=== PATIENT | female | born 1955 | race Caucasian/White ===

== ENCOUNTER → 2017-07-07 | Outpatient (CLI) | payer OTHER, MEDICARE ==
--- NOTE | 2017-07-07 12:33 | MR ---
EXAMINATION TYPE: MR hip LT wo con DATE OF EXAM: 07/07/2017 COMPARISON: NONE HISTORY: Pain in Left hip, OA of left hip Standard multiplanar, multisequence MRI departmental protocol Multiplanar, multisequence images of the left were acquired. FINDINGS: Lower lumbar spine demonstrates severe to facet arthropathy and degenerative disc disease. Suggestion of a spondylolisthesis which is not included on the axial or sagittal images of the left hip. Correl ate with x-ray for lumbar spine degenerative disc disease with possible spondylolisthesis. There is no free fluid within the pelvis. There is muscular atrophy noted of the gluteal muscles. There is no evidence of marrow edema, contusion or osteonecrosis. There is concentric narrowing of the left hip joint space without evidence of erosion. No sizable andie nt effusion. No abnormal signal within the visualized musculature. No diagnostic evidence of trochanteric bursitis . Acetabular labrum appears intact. IMPRESSION: 1. Osteoarthritis. 2. There appears to be significant degenerative disc disease involving the lower lumbar spine with fa cet arthropathy suggesting possible spondylolisthesis. Correlate with x-ray or MRI.
== END | disposition home or self-care (01) ==
LOC: RADMRIMAIN 09:57
PROVIDERS: ATTEND Orthopaedic Surgery
DX: M16.12 Unilateral primary osteoarthritis, left hip (principal)

== ENCOUNTER 2023-02-28 10:51 | Inpatient (IN) | payer MEDICARE ==
--- NOTE | 2023-02-28 11:09 | ED ---
General Adult HPI - General Stated complaint: Left leg injury Time Seen by Provider: 02/28/23 11:00 Source: patient, RN notes reviewed, old records reviewed - History of Present Illness Initial comments: This is a 67-year-old female presents emergency Department complaining of left femur pain. Patient states she was in the laundry walking and went to step up and kicked a step and felt her leg crack and then fell to the ground. Patient states she thinks it broke prior to hitting the ground. Patient denies hitting her head or neck. Patient denies any other extremity problem. Patient denies having any lightheadedness or dizziness prior to the fall. Patient denies any chest pain or difficulty breathing. - Related Data Allergies Allergy/AdvReac Type Severity Reaction Status Date / Time Penicillins Allergy Swelling Verified 02/28/23 11:15 Review of Systems ROS Statement: Those systems with pertinent positive or pertinent negative responses have been documented in the HPI. ROS Other: All systems not noted in ROS Statement are negative. General Exam - General Exam Comments Initial Comments: GENERAL: Patient is well-developed and well-nourished. Patient is nontoxic and well- hydrated and is in moderate distress. ENT: Neck is soft and supple. No significant lymphadenopathy is noted. Oropharynx is clear. Moist mucous membranes. Neck has full range of motion without eliciting any pain. EYES: The sclera were anicteric and conjunctiva were pink and moist. Extraocular movements were intact and pupils were equal round and reactive to light. Eyelids were unremarkable. PULMONARY: Unlabored respirations. Good breath sounds bilaterally. No audible rales rhonchi or wheezing was noted. CARDIOVASCULAR: There is a regular rate and rhythm without any murmurs gallops or rubs. ABDOMEN: Soft and nontender with normal bowel sounds. SKIN: Skin is clear with no lesions or rashes and otherwise unremarkable. NEUROLOGIC: Patient is alert and oriented x3. Cranial nerves II through XII are grossly intact. Motor and sensory are also intact. Normal speech, volume and content. Symmetrical smile. MUSCULOSKELETAL: Patient has significant tenderness and deformity of the mid femur on the left. All other extremities with full range of motion. LYMPHATICS: No significant lymphadenopathy is noted PSYCHIATRIC: Normal psychiatric evaluation. Course Vital Signs 02/28/23 02/28/23 02/28/23 11:01 12:00 13:00 Temperature 98.5 F Pulse Rate 80 78 75 Respiratory 18 16 16 Rate Blood Pressure 149/73 144/71 115/56 O2 Sat by Pulse 100 98 97 Oximetry 02/28/23 14:00 Temperature Pulse Rate 85 Respiratory 16 Rate Blood Pressure 132/80 O2 Sat by Pulse 96 Oximetry Medical Decision Making - Medical Decision Making EKG is interpreted by myself. EKG shows a sinus rhythm at 75 bpm TN interval 252 QRS of 93 QT interval 4:30 QTC is 441 per patient's EKG shows no ST segment elevation or depression. Was pt. sent in by a medical professional or institution (, PA, PROCUREMENT ACCOUNTANT, urgent care, hospital, or residential...) When possible be specific @ -No Did you speak to anyone other than the patient for history (EMS, parent, family, police, friend...)? What history was obtained from this source @ -No Did you review nursing and triage notes (agree or disagree)? Why? @ -I reviewed and agree with nursing and triage notes Were old charts reviewed (outside hosp., previous admission, EMS record, old EKG, old radiological studies, urgent care reports/EKG's, residential records)? Report findings @ -No old charts were reviewed Differential Diagnosis (chest pain, altered mental status, abdominal pain women, abdominal pain men, vaginal bleeding, weakness, fever, dyspnea, syncope, headache, dizziness, GI bleed, back pain, seizure, CVA, palpatations, mental health, musculoskeletal)? @ -Differential Musculoskeletal Muscular strain, contusion, ligament sprain, fracture, arthritis, septic a rthritis, bursitis, cellulitis, muscle spasm, nerve compression, DVT, arterial occlusion, herpes zoster, electrolyte abnormality, tumor.... This is not meant to be in all inclusive list EKG interpreted by me (3pts min.). @ -As above X-rays interpreted by me (1pt min.). @ -X-ray of the femur shows a displaced proximal femur fracture on the left. Chest x-ray shows no acute abnormality CT interpreted by me (1pt min.). @ -None done U/S interpreted by me (1pt. min.). @ -None done What testing was considered but not performed or refused? (CT, X-rays, U/S, labs)? Why? @ -None What meds were considered but not given or refused? Why? @ -None Did you discuss the management of the patient with other professionals (professionals i.e. DrRonny, PA, PROCUREMENT ACCOUNTANT, lab, RT, psych nurse, healthcare social worker, director of market analysis, teacher, executive officer special warfare team, upper caser)? Give summary @ -I spoke with Dr. Knight he was in agreement with admitting the patient Was smoking cessation discussed for >3mins.? @ -No Was critical care preformed (if so, how long)? @ -No Were there social determinants of health that impacted care today? How? (Homelessness, low income, unemployed, alcoholism, drug addiction, transportation, low edu. Level, literacy, decrease access to med. care, fpc, rehab)? @ -No Was there de-escalation of care discussed even if they declined (Discuss DNR or withdrawal of care, Hospice)? DNR status @ -No What co-morbidities impacted this encounter? (DM, HTN, Smoking, COPD, CAD, Cancer, CVA, ARF, Chemo, Hep., AIDS, mental health diagnosis, sleep apnea, morbid obesity)? @ -None Was patient admitted / discharged? Hospital course, mention meds given and route, prescriptions, significant lab abnormalities, going to OR and other pertinent info. @ -Patient will be admitted for femur fracture. Patient's traction was removed her Dr. Knight request. Patient was given multiple doses of pain medicine. I wrote admitting orders. I consulted Dr. Rm for medical clearance Undiagnosed new problem with uncertain prognosis? @ -No Drug Therapy requiring intensive monitoring for toxicity (Heparin, Nitro, Insulin, Cardizem)? @ -No Were any procedures done? @ -No Diagnosis/symptom? @ -Left femur fracture Acute, or Chronic, or Acute on Chronic? @ -Acute Uncomplicated (without systemic symptoms) or Complicated (systemic symptoms)? @ -complicated Side effects of treatment? @ -No Exacerbation, Progression, or Severe Exacerbation? @ -No Poses a threat to life or bodily function? How? (Chest pain, [place], [place], pneumonia, PE, COPD, DKA, ARF, appy, cholecystitis, CVA, Diverticulitis, Homicidal, Suicidal, threat to staff... and all critical care pts) @ -No - Lab Data Result diagrams: 02/28/23 11:44 02/28/23 11:44 Lab Results 02/28/23 02/28/23 02/28/23 Range/Units 11:44 11:44 11:44 WBC 11.6 H (3.8-10.6) k/uL RBC 4.85 (3.80-5.40) m/uL Hgb 14.5 (11.4-16.0) gm/dL Hct 42.7 (34.0-46.0) % MCV 88.0 (80.0-100.0) fL MCH 29.9 (25.0-35.0) pg MCHC 33.9 (31.0-37.0) g/dL RDW 13.0 (11.5-15.5) % Plt Count 309 (150-450) k/uL MPV 7.5 Neutrophils % 80 % Lymphocytes % 12 % Monocytes % 5 % Eosinophils % 1 % Basophils % 0 % Neutrophils # 9.3 H (1.3-7.7) k/uL Lymphocytes # 1.4 (1.0-4.8) k/uL Monocytes # 0.6 (0-1.0) k/uL Eosinophils # 0.1 (0-0.7) k/uL Basophils # 0.0 (0-0.2) k/uL PT 10.5 (10.0-12.5) sec INR 0.9 (<1.2) APTT 23.4 (22.0-30.0) sec Sodium 139 (137-145) mmol/L Potassium 3.8 (3.5-5.1) mmol/L Chloride 103 (98-107) mmol/L Carbon Dioxide 22 (22-30) mmol/L Anion Gap 14 mmol/L BUN 29 H (7-17) mg/dL Creatinine 1.11 H (0.52-1.04) mg/dL Est GFR (CKD-EPI)AfAm 60 (>60 ml/min/1.73 sqM) Est GFR (CKD-EPI)NonAf 52 (>60 ml/min/1.73 sqM) Glucose 164 H (74-99) mg/dL Calcium 9.8 (8.4-10.2) mg/dL Total Bilirubin 0.7 (0.2-1.3) mg/dL AST 30 (14-36) U/L ALT 28 (4-34) U/L Alkaline Phosphatase 60 (38-126) U/L Total Protein 7.5 (6.3-8.2) g/dL Albumin 4.5 (3.5-5.0) g/dL Disposition Clinical Impression: Femur fracture, left Disposition: ADMITTED IP TO THIS HOSP Referrals: Hector Mcclure MD [Primary Care Provider] - 1-2 days Time of Disposition: 14:34
[2023-02-28] MEDS ORDERED: HYDROmorphone 0.5 MG/0.5 ML SYRINGE IVP STA ×2 (11:31→13:54)
[2023-02-28 11:58] LABS: Basophils % (A) 0 %; Eosinophils # (A) 0.1 k/uL (0-0.7); Eosinophils % (A) 1 %; HCT 42.7 % (34.0-46.0); HGB 14.5 gm/dL (11.4-16.0); Lymphocytes # (A) 1.4 k/uL (1.0-4.8); Lymphocytes % (A) 12 %; MCH 29.9 pg (25.0-35.0); MCHC 33.9 g/dL (31.0-37.0); Mean Platelet Volume 7.5; Monocytes # (A) 0.6 k/uL (0-1.0); Monocytes % (A) 5 %; Neutrophils # (A) 9.3 k/uL (1.3-7.7); Neutrophils % (A) 80 %; Platelet Count 309 k/uL (150-450); RBC 4.85 m/uL (3.80-5.40); WBC 11.6 k/uL (3.8-10.6)
--- NOTE | 2023-02-28 12:21 | XR ---
EXAMINATION TYPE: XR femur LT DATE OF EXAM: 02/28/2023 12:03 PM CLINICAL INDICATION:Female, 67 years old with history of Trauma; [facility] COMPARISON: None TECHNIQUE: The left femur was examined in Frontal and lateral projections. FINDINGS/IMPRESSION: Acute left proximal femur diaphysis fracture with displacement and shortening. There is radial displa cement and shortening up to 3.0 cm.
--- NOTE | 2023-02-28 12:22 | XR ---
EXAMINATION TYPE: XR chest 1V DATE OF EXAM: 02/28/2023 12:03 PM CLINICAL INDICATION:Female, 67 years old with history of Pre-surgical; [facility] COMPARISON: None TECHNIQUE: XR chest 1V Frontal view of the chest. FINDINGS: Lungs/Pleura: Elevated right diaphragm. There is no evidence of pleural effusion, focal consolidation , or pneumothorax. Pulmonary vascularity: Pulmonary vascular congestion. Heart/mediastinum: Cardiomediastinal silhouette is enlarged and stable. Musculoskeletal: No acute osseous pathology. Bilateral shoulder arthroplasty changes appear intact. Other findings: None IMPRESSION: Low lung volumes with a generalized hazy appearance which could represent atelectasis versus pulmonar y edema correlate with serum BNP.
[2023-02-28 12:25] LABS: ALT 28 U/L (4-34); AST 30 U/L (14-36); African American GFR (CKD) 60 (>60 ml/min/1.73 sqM); Albumin 4.5 g/dL (3.5-5.0); Alkaline Phosphatase 60 U/L (38-126); Anion Gap 14 mmol/L; Blood Urea Nitrogen 29 mg/dL (7-17); Calcium 9.8 mg/dL (8.4-10.2); Carbon Dioxide 22 mmol/L (22-30); Chloride 103 mmol/L (98-107); Glucose 164 mg/dL (74-99); Non-African American GFR(CKD) 52 (>60 ml/min/1.73 sqM); Potassium 3.8 mmol/L (3.5-5.1); Sodium 139 mmol/L (137-145); Total Bilirubin 0.7 mg/dL (0.2-1.3); Total Protein 7.5 g/dL (6.3-8.2)
[2023-02-28 12:30] LABS: INR 0.9 (<1.2); Partial Thromboplastin Time 23.4 sec (22.0-30.0); Prothrombin Time 10.5 sec (10.0-12.5)
[2023-02-28] MEDS ORDERED: SODIUM CHLORIDE 0.9% 1,000 ML IV ONE (14:35)
--- NOTE | 2023-02-28 16:10 | P.CONS ---
History of Present Illness - Reason for Consult Consult date: 02/28/23 Medical management Requesting physician: Jamison Knight - Chief Complaint Left femur fracture - History of Present Illness This is a pleasant 67-year-old patient follows with Dr. Hector Mcclure. Chronic stable medical conditions include hyperlipidemia, essential hypertension, GERD, Frank arthritis. Patient somewhat limited in her exercise tolerance that is able to do a lot of mouth because of pain in her knees. She was started take a step, but hit the rung, and felt a snap in the left hip area. Patient is a confirmed fracture of the left femoral neck. at the bedside. Denies any prior cardiac history. No chest pain or shortness of breath. Review of systems: GEN.: None EYES: None HEENT: None NECK: None RESPIRATORY: None CARDIOVASCULAR: None GASTROINTESTINAL: None GENITOURINARY: None MUSCULOSKELETAL: As above LYMPHATICS: None HEMATOLOGICAL: None PSYCHIATRY: None NEUROLOGICAL: None Past medical history to include: Hypertension, hyperlipidemia, primary osteoarthritis, GERD, Social history: Homemaker. . No smoking or alcohol Physical examination: VITAL SIGNS: 98.5, 80, 18, 1:30/67, 98% room air GENERAL: BMI 37.1, declining but awake comfortable. EYES: Pupils equal. Conjunctiva normal. HEENT: External appearance of nose and ears normal, oral cavity grossly normal. NECK: JVD not raised; masses not palpable. HEART: First and second heart sounds are normal; no edema. LUNGS: Respiratory rate normal; clear to auscultation. ABDOMEN: Soft, nontender, liver spleen not palpable, no masses palpable. PSYCH: Alert and oriented x3; mood and affect normal. MUSCULOSKELETAL:No Clubbing/cyanosis;muscles-grossly intact. Limited range of motion of left hip. Evidence of OA in other joints NEUROLOGICAL: Cranial nerves grossly intact; no facial asymmetry, power and sensation grossly intact. LYMPHATICS: No lymph nodes palpable in the axilla and neck INVESTIGATIONS, reviewed in the clinical context: February 28: White count 11.6 hemoglobin 14.5 platelets 309 sodium 139 potassium 3.8 BUN 29 creatinine 1.11 EKG tracing personally reviewed by me-normal sinus rhythm. Chest x-ray film personally reviewed by me-elevated right diaphragm Assessment and plan: -Left femoral neck fracture Dictating scheduled for surgery by Dr. Jamison Knight -Hyperlipidemia Zocor -Essential hypertension Cozaar 25 mg a day -Primary osteoarthritis Pain medications as needed -Abnormal creatinine. Acute versus chronic. Note patient does take Voltaren. And hydrochlorothiazide. Check UA. IV fluids. Repeat labs in the morning. Patient denies any cardiac or respiratory symptoms. Denies any cardiac history. Low risk for any perioperative medical conditions. Medically stable to proceed for surgery. Thank you Dr. Knight Past Medical History Past Medical History: Hypertension Additional Past Medical History / Comment(s): breast cancer 2011 History of Any Multi-Drug Resistant Organisms: None Reported Past Surgical History: Cholecystectomy, Joint Replacement, Orthopedic Surgery, Tonsillectomy, Tubal Ligation Additional Past Surgical History / Comment(s): left knee replacement 2015, bilat shoulders, detached retina, lumpectomy 2011 Past Psychological History: No Psychological Hx Reported Smoking Status: Never smoker Past Alcohol Use History: Rare Past Drug Use History: None Reported Medications and Allergies Home Medications Medication Instructions Recorded Confirmed Type Acetaminophen/Diphenhydramine 2 tab PO HS 02/28/23 02/28/23 History [Tylenol PM 500-25mg] Alendronate Sodium [Fosamax] 70 mg PO MANDUJANO 02/28/23 02/28/23 History Calcium Citrate/Vitamin D3 1 tab PO DAILY 02/28/23 02/28/23 History [Citracal + D Maximum Caplet] Diclofenac Sodium [Voltaren] 50 mg PO BID 02/28/23 02/28/23 History Losartan [Cozaar] 25 mg PO DAILY 02/28/23 02/28/23 History Omeprazole [PriLOSEC] 20 mg PO DAILY 02/28/23 02/28/23 History Simvastatin [Zocor] 10 mg PO HS 02/28/23 02/28/23 History Triamcinolone 0.1% Cream [Kenalog 1 applic TOPICAL BID PRN 02/28/23 02/28/23 History 0.1% Cream] hydroCHLOROthiazide 12.5 mg PO DAILY 02/28/23 02/28/23 History Allergies Allergy/AdvReac Type Severity Reaction Status Date / Time Penicillins Allergy Swelling Verified 02/28/23 15:24 in mouth Physical Exam Vitals: Vital Signs Temp Pulse Resp BP Pulse Ox 02/28/23 15:32 84 18 130/67 98 02/28/23 14:00 85 16 132/80 96 02/28/23 13:00 75 16 115/56 97 02/28/23 12:00 78 16 144/71 98 02/28/23 11:01 98.5 F 80 18 149/73 100 Intake and Output 02/28/23 02/28/23 02/28/23 06:59 14:59 22:59 Other: Weight 86.183 kg Results CBC & Chem 7: 02/28/23 11:44 02/28/23 11:44 Labs: Abnormal Lab Results - Last 24 Hours (Table) 02/28/23 02/28/23 Range/Units 11:44 11:44 WBC 11.6 H (3.8-10.6) k/uL Neutrophils # 9.3 H (1.3-7.7) k/uL BUN 29 H (7-17) mg/dL Creatinine 1.11 H (0.52-1.04) mg/dL Glucose 164 H (74-99) mg/dL
[2023-02-28] MEDS: HYDROmorphone 0.5 MG/0.5 ML SYRINGE IVP PRN ×2 (16:16→20:14)
[2023-02-28] MEDS: ENOXAPARIN 40 MG/0.4 ML SYRINGE SQ SCH (16:16)
[2023-02-28 18:13] LABS: Appearance,Urine Clear (Clear); Bilirubin,Urine Negative (Negative); Blood,Urine Small (Negative); Color,Urine Colorless; Glucose,Urine (UA) Negative (Negative); Ketones,Urine Negative (Negative); Leukocyte Esterase,Urine Negative (Negative); Mucus,Urine Rare /hpf; Nitrite,Urine Negative (Negative); Protein,Urine Negative (Negative); RBC,Urine 12 /hpf (0-5); Specific Gravity,Urine 1.017 (1.001-1.035); Urobilinogen,Urine <2.0 mg/dL (<2.0); WBC,Urine <1 /hpf (0-5)
[2023-02-28] MEDS: ATORVASTATIN 10 MG TAB PO SCH (20:14)
[2023-03-01] MEDS: HYDROmorphone 0.5 MG/0.5 ML SYRINGE IVP PRN ×6 (00:03→23:34)
[2023-03-01] MEDS: PANTOPRAZOLE 40 MG TABLET PO SCH (05:53)
[2023-03-01 07:01] LABS: African American GFR (CKD) >90 (>60 ml/min/1.73 sqM); Anion Gap 8 mmol/L; Blood Urea Nitrogen 18 mg/dL (7-17); Calcium 6.9 mg/dL (8.4-10.2); Carbon Dioxide 20 mmol/L (22-30); Chloride 112 mmol/L (98-107); Glucose 94 mg/dL (74-99); Non-African American GFR(CKD) 86 (>60 ml/min/1.73 sqM); Potassium 3.1 mmol/L (3.5-5.1); Sodium 140 mmol/L (137-145)
[2023-03-01] MEDS: ENOXAPARIN 40 MG/0.4 ML SYRINGE SQ SCH (08:14)
--- NOTE | 2023-03-01 08:17 | P.HPOR ---
History of Present Illness H&P Date: 03/01/23 Chief Complaint: Left leg pain This is a 67-year-old female presents emergency Department complaining of left femur pain. Patient states she was in the laundry walking and went to step up and kicked a step and felt her leg crack and then fell to the ground. Patient states she thinks it broke prior to hitting the ground. Patient denies hitting her head or neck. Patient denies any other extremity problem. Patient denies having any lightheadedness or dizziness prior to the fall. Patient denies any chest pain or difficulty breathing. She is found to have a long oblique proximal femur fracture. We are consulted for Orthopedic evaluation. Past Medical History Past Medical History: Hypertension, Osteoarthritis (OA) Additional Past Medical History / Comment(s): breast cancer 2011 History of Any Multi-Drug Resistant Organisms: None Reported Past Surgical History: Breast Surgery, Cholecystectomy, Joint Replacement, Orthopedic Surgery, Tonsillectomy, Tubal Ligation Additional Past Surgical History / Comment(s): left knee replacement 2015, bilat shoulders, detached retina, R sided lumpectomy with lymph node involvement 2011 Past Psychological History: No Psychological Hx Reported Smoking Status: Never smoker Past Alcohol Use History: Rare Past Drug Use History: None Reported Medications and Allergies Home Medications Medication Instructions Recorded Confirmed Type Acetaminophen/Diphenhydramine 2 tab PO HS 02/28/23 02/28/23 History [Tylenol PM 500-25mg] Alendronate Sodium [Fosamax] 70 mg PO MANDUJANO 02/28/23 02/28/23 History Calcium Citrate/Vitamin D3 1 tab PO DAILY 02/28/23 02/28/23 History [Citracal + D Maximum Caplet] Diclofenac Sodium [Voltaren] 50 mg PO BID 02/28/23 02/28/23 History Losartan [Cozaar] 25 mg PO DAILY 02/28/23 02/28/23 History Omeprazole [PriLOSEC] 20 mg PO DAILY 02/28/23 02/28/23 History Simvastatin [Zocor] 10 mg PO HS 02/28/23 02/28/23 History Triamcinolone 0.1% Cream [Kenalog 1 applic TOPICAL BID PRN 02/28/23 02/28/23 History 0.1% Cream] hydroCHLOROthiazide 12.5 mg PO DAILY 02/28/23 02/28/23 History Allergies Allergy/AdvReac Type Severity Reaction Status Date / Time Penicillins Allergy Swelling Verified 02/28/23 15:24 in mouth Physical Examination This is a 67 yo female in no acute distress. Exam of the head and neck reveal no obvious deformity. Full cervical spine motion without difficulty or pain. Exam of the lower extremities reveals no obvious deformity. Unable to lift the left leg off the bed. Full foot and ankle motion. Neurovascular status intact LLE. Musculoskeletal exam otherwise unremarkable. Results Xrays reveal a displaced long oblique proximal femoral shaft fracture. No other bony abnormalities noted. Total knee in place. - Labs Labs: Abnormal Lab Results - Last 24 Hours (Table) 02/28/23 02/28/23 02/28/23 Range/Units 11:44 11:44 17:44 WBC 11.6 H (3.8-10.6) k/uL Neutrophils # 9.3 H (1.3-7.7) k/uL Potassium (3.5-5.1) mmol/L Chloride (98-107) mmol/L Carbon Dioxide (22-30) mmol/L BUN 29 H (7-17) mg/dL Creatinine 1.11 H (0.52-1.04) mg/dL Glucose 164 H (74-99) mg/dL Calcium (8.4-10.2) mg/dL Urine Blood Small H (Negative) Urine RBC 12 H (0-5) /hpf Urine Mucus Rare H (None) /hpf 03/01/23 Range/Units 05:56 WBC (3.8-10.6) k/uL Neutrophils # (1.3-7.7) k/uL Potassium 3.1 L (3.5-5.1) mmol/L Chloride 112 H (98-107) mmol/L Carbon Dioxide 20 L (22-30) mmol/L BUN 18 H (7-17) mg/dL Creatinine (0.52-1.04) mg/dL Glucose (74-99) mg/dL Calcium 6.9 L (8.4-10.2) mg/dL Urine Blood (Negative) Urine RBC (0-5) /hpf Urine Mucus (None) /hpf H & H 02/28/23 Range/Units 11:44 Hgb 14.5 (11.4-16.0) gm/dL Hct 42.7 (34.0-46.0) % Coagulation 02/28/23 Range/Units 11:44 INR 0.9 (<1.2) Result Diagrams: 02/28/23 11:44 03/01/23 05:56 Assessment and Plan (1) Femur fracture, left Current Visit: Yes Status: Acute Code(s): S72.92XA - UNSP FRACTURE OF LEFT FEMUR, INIT ENCNTR FOR CLOSED FRACTURE SNOMED Code(s): 85787444 Plan: The clinical and Xray findings are discussed w the pt. It is recommended she be taken to surgery for closed reduction and IM nail insertion of the femur with possible ORIF. After discussion and consideration the pt elects to proceed with the surgery. She has been cleared medically by IM.
[2023-03-01] MEDS ORDERED: LACTATED RINGERS 1,000 ML IV ONE (08:25)
[2023-03-01] MEDS ORDERED: ONDANSETRON 4 MG/2 ML VIAL ONE (08:38)
[2023-03-01] MEDS ORDERED: ONDANSETRON 4 MG/2 ML VIAL IVP ONE (08:39)
[2023-03-01] MEDS ORDERED: DEXAMETHASONE SOD PHOSPHATE 4 MG/ML 1 ML VIAL IVP ONE (08:40)
[2023-03-01] MEDS ORDERED: NALOXONE 0.4 MG/ML 1 ML VIAL IV PRN (08:51)
[2023-03-01] MEDS ORDERED: MAGNESIUM HYDROXIDE 2,400 MG/30 ML CUP PO PRN (08:51)
[2023-03-01] MEDS ORDERED: ONDANSETRON 4 MG/2 ML VIAL IVP PRN (08:51)
[2023-03-01] MEDS ORDERED: HYDROmorphone 0.5 MG/0.5 ML SYRINGE IVP PRN ×2 (08:51)
[2023-03-01] MEDS ORDERED: HYDROcodone/APAP 7.5-325MG 1 EACH TAB PO PRN (08:53)
[2023-03-01] MEDS ORDERED: LOSARTAN 25 MG TAB PO SCH (09:00)
[2023-03-01] MEDS ORDERED: SUCCINYLCHOLINE CHLORIDE 200 MG/10 ML VIAL IV ONE (09:04)
[2023-03-01] MEDS ORDERED: HYDROmorphone (PF) 1 MG/ML ONE (09:04)
[2023-03-01] MEDS ORDERED: GLYCOPYRROLATE 0.2 MG/ML 2 ML VIAL ONE (09:04)
[2023-03-01] MEDS ORDERED: LIDOCAINE 1% INJ 10MG/ML (20 ML MDV) ONE (09:04)
[2023-03-01] MEDS ORDERED: TRANEXAMIC 1,000 MG/100ML-NACL PREMIX BAG ONE (09:04)
[2023-03-01] MEDS ORDERED: ROCURONIUM 10 MG/ML (5 ML VIAL) IV ONE (09:04)
[2023-03-01] MEDS ORDERED: PROPOFOL 10 MG/ML 20 ML VIAL IV ONE (09:04)
[2023-03-01] MEDS ORDERED: fentaNYL (PF) 50 MCG/ML 2 ML AMP ONE (09:04)
[2023-03-01] MEDS ORDERED: NEOSTIGMINE 1 MG/ML 10 ML VIAL ONE (09:04)
[2023-03-01] MEDS ORDERED: MIDAZOLAM 2 MG/2 ML VIAL ONE (09:04)
[2023-03-01] MEDS ORDERED: ceFAZolin 1,000 MG in SODIUM CHLORIDE 0.9% 1,000 ML IRRIGATION ONE (09:06)
--- NOTE | 2023-03-01 11:13 | P.OP ---
Date of Procedure: 03/01/23 Preoperative Diagnosis: Closed subtrochanteric fracture left femur Postoperative Diagnosis: Closed subtrochanteric fracture left femur Procedure(s) Performed: Close reduction and intramedullary rodding left femur Implants: [employer] Tri[employer] Intertan nail 125, 10 mm x 36 cm. [employer] Intertan integrated-interlocking lag screw, 75 mm lag screw, 70 mm compression screw. [employer] L-P screw, 5.0 mm x 40 mm. [employer] L-P screw, 5.0 mm x 47.5 mm. Anesthesia: GETA Surgeon: Jamison Knight Relay Engineer #1: Yodit Davila Estimated Blood Loss (ml): 500 Pathology: other (Bone sent for biopsy to rule out pathologic fracture) Condition: stable Disposition: PACU Indications for Procedure: This is a 67-year-old female that sustained an injury at home yesterday. She has a history of taking a step and feeling a pop in her left leg. She immediately fell to the ground was brought by EMS to the hospital. She was diagnosed with a left femur fracture. She does have a history of breast cancer which raises the suspicion for pathologic fracture. Her bone reamings will be sent for evaluation. The surgery was discussed at length with the patient and the family and informed consent was obtained. Operative Findings: Operative findings are consistent with a subtrochanteric fracture left femur Description of Procedure: The patient was seen in the preoperative area, consent was reviewed, and the operative site was marked with a skin marker. The surgical procedure was discussed at length with both the patient and the family at the bedside. All questions were answered to the best of my ability. The patient was brought to the operating room and placed on the fracture table. Anesthesia was administered by the anesthesia department. 2 g of Ancef were administered intravenously. 1 g of tranexamic acid was given intravenously The patient was placed supine on the fracture table with the fractured extremity in traction boot. The other extremity was placed in a well leg garvey and the bony prominences were well padded. A universal timeout was then performed which confirmed the patient's name, bartlett rgical site, ALLERGIES, and consent. Fracture reduction was performed with a traction and abduction maneuver which was confirmed with fluoroscopy, both AP and lateral views.. After reduction was performed, the extremity was then prepped with ChloraPrep solution and draped in the usual sterile fashion. Utilizing fluoroscopy to identify the tip of the greater trochanter, a 3 cm longitudinal incision was made just proximal to the greater trochanter. Incision was carried through the fascia to the tip of the greater trochanter. Utilizing a curved awl, the entry point was created at the tip of the greater trochanter and centralized in the AP and lateral planes. These locations were confirmed by fluoroscopy. A guidewire was then inserted down the medullary canal. Sequentially reaming of the femur was performed to 11.5 mm distally and 17 mm proximally with the channel reamer. After reaming, appropriate size nail was inserted over the guidewire. The nail was inserted to the appropriate depth and the guidewire was removed. Placement of the johnny was confirmed with both AP and lateral fluoroscopic views. The lag screw drill sleeve was placed in the jig and a small skin incision was made on the lateral aspect of the leg and the lag screw drill sleeve was locked into the guide. The 3.2 mm guide pin sleeve was inserted through the lag screw drill sleeve down to bone. A 3.2 mm distally threaded guidewire was inserted through the guide pin sleeve. The guidewire was inserted in the desired position in the femoral head, both anterior and posterior. The lag screw length cage was inserted over the guidepin to the back of the lag screw drill sleeve. Lag screw length was then measured from the cage. Next, the 7.0 mm compression screw starter drill was inserted in the lag screw drill sleeve beneath the guidepin. The compression screw starter drill was advanced under power until it abutted the back and of the lag screw drill sleeve. The 7.0 mm compression screw drill was inserted through the lag screw drill sleeve into the hole created by the compression screw starter drill. This was advanced under fluoroscopy to a depth 5 mm less and the measurement taken for the guidepin. The compression screw drill was removed and the antirotation bar was inserted into the same hole. The 3.2 mm guide pin sleeve was then removed from the drill guide. The lag screw drill was then inserted to a depth that was measured by the lag screw gauge. This was done under fluoroscopy. The lag screw was inserted over the guidewire to the appropriate depth using fluoroscopy. The antirotation bar was then removed and the compression screw was advanced through the lag screw drill sleeve beneath the lag screw. This was advanced to the appropriate compression was achieved. The proximal drill guide was then removed. Attention was then directed distally and using fluoroscopic guidance an incision was made on the lateral aspect of the distal femur and the distal locking screws. Skin incision was made down to bone. A freehand technique was used to place the 2 distal screws. The entire assembly was then removed and final fluoroscopic x-rays were obtained. The wounds were then irrig ated copiously with saline solution. Fascia was closed with 0-Vicryl. Subcutaneous tissues were closed with 2-0 Vicryl and the skin was closed with maryan. Sterile dressings were applied. The patient was transported to the recovery room in stable condition. The embroidery assistant MARC Feldman was required due the complexity of surgery the need for skilled surgical nurse practitioner for positioning draping retraction and fracture reduction.
--- NOTE | 2023-03-01 12:02 | XR ---
EXAMINATION TYPE: XR Femur LT 1 View DATE OF EXAM: 03/01/2023 11:56 AM INDICATION: Patient age:Female; 67 years old; Reason for study: Status post hip surgery, assess surgical alignment; COMPARISON: Left hip radiograph 02/28/2023 TECHNIQUE: The left femur was examined in single frontal projection. FINDINGS: Post surgical changes from left femur fixation with intramedullary johnny and transverse fixat ion screws for oblique proximal femoral fracture. Hardware appears intact with appropriate lab. Impro hailey alignment from prior exam. Associated soft tissue gas and edema with skin maryan. Left total kne e arthroplasty changes. No new fractures. IMPRESSION: Postsurgical changes from left femoral fixation. Improved alignment with hardware appearing intact.
--- NOTE | 2023-03-01 12:03 | XR ---
Intraoperative/procedural fluoroscopic services were provided for open reduction left femoral fractur e fixation. Total fluoroscopy time is 3.26 minutes with a total of 6 submitted images to PACS. Total DAP 16.065 Gycm2. Please see the operative note for further details.
[2023-03-01] MEDS ORDERED: POTASSIUM CHLORIDE ER 20 MEQ TAB.ER PO STA (15:33)
--- NOTE | 2023-03-01 15:35 | P.PN ---
Progress Note - Text Progress Note Date: 03/01/23 - Chief Complaint Left femur fracture - History of Present Illness This is a pleasant 67-year-old patient follows with Dr. Hector Mcclure. Chronic stable medical conditions include hyperlipidemia, essential hypertension, GERD, Frank arthritis. Patient somewhat limited in her exercise tolerance that is able to do a lot of mouth because of pain in her knees. She was started take a step, but hit the rung, and felt a snap in the left hip area. Patient is a confirmed fracture of the left femoral neck. at the bedside. Denies any prior cardiac history. No chest pain or shortness of breath. March 01: Underwent closed reduction and IM rodding of the left femur. Postprocedure laying in bed. Pain control. Has been at the bedside. No nausea vomiting. Active Medications Hydrocodone Bitart/Acetaminophen (Hydrocodone/Apap 7.5-325mg 1 Each Tab) 1 each PO Q6H PRN PRN Reason: Pain Scale 1 to 5 Hydrocodone Bitart/Acetaminophen (Hydrocodone/Apap 7.5-325mg 1 Each Tab) 2 each PO Q6H PRN PRN Reason: Pain Scale 6 to 10 Apixaban (Apixaban 2.5 Mg Tablet) 2.5 mg PO BID [facility]; Protocol Atorvastatin Calcium (Atorvastatin 10 Mg Tab) 10 mg PO HS [facility] Last Admin: 02/28/23 20:14 Dose: 10 mg Enoxaparin Sodium (Enoxaparin 40 Mg/0.4 Ml Syringe) 40 mg SQ DAILY [facility] Last Admin: 03/01/23 08:14 Dose: Not Given Hydromorphone HCl (Hydromorphone 0.5 Mg/0.5 Ml Syringe) 0.5 mg IVP Q4HR PRN PRN Reason: Pain Last Admin: 03/01/23 12:49 Dose: 0.5 mg Hydromorphone HCl (Hydromorphone 0.5 Mg/0.5 Ml Syringe) 0.125 mg IVP Q3HR PRN PRN Reason: Pain Scale 1 to 3 Hydromorphone HCl (Hydromorphone 0.5 Mg/0.5 Ml Syringe) 0.5 mg IVP Q3HR PRN PRN Reason: Pain Scale 7 to 10 Hydromorphone HCl (Hydromorphone 0.5 Mg/0.5 Ml Syringe) 0.25 mg IVP Q3HR PRN PRN Reason: Pain Scale 4 to 6 Tranexamic Acid 1,000 mg/ (Sodium Chloride) 110 mls @ 200 mls/hr IVPB Q2HR PRN; Protocol PRN Reason: Bleeding Stop: 03/01/23 23:00 Cefazolin Sodium 2 gm/ Sodium (Chloride) 50 mls @ 100 mls/hr IVPB ONCE ONE Stop: 03/01/23 16:29 Last Admin: 03/01/23 09:06 Dose: 50 mls Sodium Chloride (Saline 0.9%) 1,000 mls @ 70 mls/hr IV .[id number] [facility] Cefazolin Sodium 2 gm/ Sodium (Chloride) 50 mls @ 100 mls/hr IVPB Q8HR [facility]; Protocol Stop: 03/02/23 00:29 Losartan Potassium (Losartan 25 Mg Tab) 25 mg PO DAILY [facility] Last Admin: 03/01/23 08:14 Dose: Not Given Magnesium Hydroxide (Magnesium Hydroxide 2,400 Mg/30 Ml Cup) 2,400 mg PO DAILY PRN PRN Reason: Constipation Naloxone HCl (Naloxone 0.4 Mg/Ml 1 Ml Vial) 0.2 mg IV Q2M PRN PRN Reason: Opioid Reversal Ondansetron HCl (Ondansetron 4 Mg/2 Ml Vial) 4 mg IVP Q8H PRN PRN Reason: Nausea And Vomiting Pantoprazole Sodium (Pantoprazole 40 Mg Tablet) 40 mg PO -BRKFST [facility] Last Admin: 03/01/23 05:53 Dose: 40 mg Senna/Docusate Sodium (Sennosides-Docusate Sodium 1 Each Tab) 2 each PO [facility] Past medical history to include: Hypertension, hyperlipidemia, primary osteoarthritis, GERD, Social history: Homemaker. . No smoking or alcohol Physical examination: VITAL SIGNS: Afebrile, 92, 16, 98/62, 92% GENERAL: Laying in bed, comfortable EYES: Pupils equal. Conjunctiva normal. HEENT: External appearance of nose and ears normal, oral cavity grossly normal. NECK: JVD not raised; masses not palpable. HEART: First and second heart sounds are normal; no edema. LUNGS: Respiratory rate normal; clear to auscultation. ABDOMEN: Soft, nontender, liver spleen not palpable, no masses palpable. PSYCH: Alert and oriented x3; mood and affect normal. MUSCULOSKELETAL:No Clubbing/cyanosis;muscles-grossly intact. Dressing over left hip incision. Evidence of OA in other joints INVESTIGATIONS, reviewed in the clinical context: March 01: Sodium 140 potassium 3.1 creatinine 0.73 February 28: White count 11.6 hemoglobin 14.5 platelets 309 sodium 139 potassium 3.8 BUN 29 creatinine 1.11 EKG tracing personally reviewed by me-normal sinus rhythm. Chest x-ray film personally reviewed by me-elevated right diaphragm Assessment and plan: -Left femoral neck fracture Closed reduction IM nailing by Dr. Jamison Knight On eliquis for DVT prophylaxis. Pain control. IV cefazolin for infection prophylaxis -Hyperlipidemia Zocor -Essential hypertension, currently running on the lower side Cozaar 25 mg a day hold -Primary osteoarthritis Pain medications as needed -Acute kidney injury. Possibly ATN. Voltaren and hydrochlorothiazide discontinued Check UA. IV fluids. Discussed. Repeat labs in the morning. Thank you Dr. Knight
[2023-03-01] MEDS ORDERED: TRANEXAMIC ACID 1,000 MG in SODIUM CHLORIDE 0.9% 100 ML IVPB PRN (16:00)
[2023-03-01] MEDS ORDERED: ceFAZolin 2 GM in SODIUM CHLORIDE 0.9% 100 ML IVPB ONE (16:00)
[2023-03-01] MEDS: SENNOSIDES-DOCUSATE SODIUM 1 EACH TAB PO SCH (20:05)
[2023-03-01] MEDS: ATORVASTATIN 10 MG TAB PO SCH (20:05)
[2023-03-01] MEDS: SODIUM CHLORIDE 0.9% 1,000 ML IV SCH (23:17)
[2023-03-02] MEDS: SODIUM CHLORIDE 0.9% 1,000 ML IV SCH ×2 (01:49→01:59)
[2023-03-02] MEDS: HYDROcodone/APAP 7.5-325MG 1 EACH TAB PO PRN ×4 (01:58→19:26)
[2023-03-02 06:10] LABS: African American GFR (CKD) 76 (>60 ml/min/1.73 sqM); Anion Gap 9 mmol/L; Blood Urea Nitrogen 20 mg/dL (7-17); Calcium 8.3 mg/dL (8.4-10.2); Carbon Dioxide 21 mmol/L (22-30); Chloride 102 mmol/L (98-107); Glucose 120 mg/dL (74-99); Non-African American GFR(CKD) 65 (>60 ml/min/1.73 sqM); Potassium 4.4 mmol/L (3.5-5.1); Sodium 132 mmol/L (137-145)
[2023-03-02] MEDS: PANTOPRAZOLE 40 MG TABLET PO SCH (07:05)
[2023-03-02] MEDS: APIXABAN 2.5 MG TABLET PO SCH ×2 (09:41→21:26)
[2023-03-02 10:49] LABS: Basophils # (A) 0.03 X 10*3/uL (0.00-0.10); Basophils % (A) 0.3 %; Eosinophils # (A) 0.09 X 10*3/uL (0.04-0.35); HGB 9.3 g/dL (12.0-15.0); Lymphocytes # (A) 2.51 X 10*3/uL (0.90-5.00); Lymphocytes % (A) 27.2 %; MCH 29.5 pg (27.0-32.0); MCHC 33.2 g/dL (32.0-37.0); MCV 88.9 FL (80.0-97.0); Mean Platelet Volume 10.8 FL (9.5-12.2); Monocytes # (A) 1.43 X 10*3/uL (0.20-1.00); Monocytes % (A) 15.5 %; NRBC Per 100 WBC 0 X 10*3/uL (0.00-0.01); Neutrophils # (A) 5.13 X 10*3/uL (1.80-7.70); Neutrophils % (A) 55.6 %; Platelet Count 268 X 10*3/uL (140-440); RBC 3.15 X 10*6/uL (4.10-5.20); RDW 13.4 % (11.5-14.5); WBC 9.23 X 10*3/uL (4.50-10.00)
--- NOTE | 2023-03-02 11:26 | P.PN ---
Subjective Progress Note Date: 03/02/23 This is a 67-year-old female who is status post closed reduction and intramedullary rodding left femur. This is postoperative day #1 and patient is seen and evaluated at bedside with Dr. Jamison Knight. Patient states that her pain is well-controlled and she denies any new complaints today. Objective - Vital Signs Vital signs: Vital Signs Temp 98.2 F 03/02/23 07:02 Pulse 79 03/02/23 07:02 Resp 17 03/02/23 07:02 BP 107/68 03/02/23 07:02 Pulse Ox 98 03/02/23 07:02 FiO2 Intake & Output 03/01/23 03/02/23 03/02/23 18:59 06:59 18:59 Intake Total 951 Output Total 1150 800 Balance -199 -800 Intake: IV 951 Output: Urine 650 800 Estimated Blood Loss 500 Other: Voiding Method Indwelling Catheter Indwelling Catheter Indwelling Catheter - Exam Vital signs are stable. Patient is in no acute distress and is alert and oriented 3. Calf is soft and nontender to palpation. Dressings are clean, dry, and intact. Patient has full foot and ankle motion without pain or diff iculty. Sensation intact. Neurovascular status and circulatory status are intact. - Labs CBC & Chem 7: 03/02/23 07:01 03/02/23 05:33 Labs: Abnormal Lab Results - Last 24 Hours (Table) 03/02/23 03/02/23 Range/Units 05:33 07:01 RBC 3.15 L (4.10-5.20) X 10*6/uL Hgb 9.3 L (12.0-15.0) g/dL Hct 28.0 L (37.2-46.3) % Monocytes # 1.43 H (0.20-1.00) X 10*3/uL Sodium 132 L (137-145) mmol/L Carbon Dioxide 21 L (22-30) mmol/L BUN 20 H (7-17) mg/dL Glucose 120 H (74-99) mg/dL Calcium 8.3 L (8.4-10.2) mg/dL Assessment and Plan Assessment: Status post closed reduction and intramedullary rodding left femur. (1) Femur fracture, left Current Visit: Yes Status: Acute Code(s): S72.92XA - UNSP FRACTURE OF LEFT FEMUR, INIT ENCNTR FOR CLOSED FRACTURE SNOMED Code(s): 33177893 Plan: Continue routine postop care and pain control. Continue anticoagulation with Eliquis. Toe-touch weightbearing to the left lower extremity with a walker. Leave dressings in place for 7 days. Appreciate input from internal medicine. Anticipate discharge to [facility] the next 24-48 hours.
[2023-03-02] MEDS: ENOXAPARIN 40 MG/0.4 ML SYRINGE SQ SCH (12:33)
[2023-03-02] MEDS: FERROUS SULFATE 325 MG TAB PO SCH ×2 (14:41→17:40)
[2023-03-02] MEDS: SODIUM FERRIC GLUCONAT-SUCROSE 125 MG in SODIUM CHLORIDE 0.9% 100 ML IVPB SCH (15:17)
--- NOTE | 2023-03-02 17:26 | P.PN ---
Progress Note - Text Progress Note Date: 03/02/23 - Chief Complaint Left femur fracture - History of Present Illness This is a pleasant 67-year-old patient follows with Dr. Hector Mcclure. Chronic stable medical conditions include hyperlipidemia, essential hypertension, GERD, Frank arthritis. Patient somewhat limited in her exercise tolerance that is able to do a lot of mouth because of pain in her knees. She was started take a step, but hit the rung, and felt a snap in the left hip area. Patient is a confirmed fracture of the left femoral neck. at the bedside. Denies any prior cardiac history. No chest pain or shortness of breath. March 01: Underwent closed reduction and IM rodding of the left femur. Postprocedure laying in bed. Pain control. Has been at the bedside. No nausea vomiting. March 02: Sitting up in the recliner. Some pain at the operative site. Tolerating diet. Being evaluated for rehab. Discussed with patient and . Significant drop in hemoglobin. Given IV Ferrlecit 2 doses. BP on the lower side. Cozaar held Active Medications Hydrocodone Bitart/Acetaminophen (Hydrocodone/Apap 7.5-325mg 1 Each Tab) 1 each PO Q6H PRN PRN Reason: Pain Scale 1 to 5 Hydrocodone Bitart/Acetaminophen (Hydrocodone/Apap 7.5-325mg 1 Each Tab) 2 each PO Q6H PRN PRN Reason: Pain Scale 6 to 10 Last Admin: 03/02/23 13:00 Dose: 2 each Apixaban (Apixaban 2.5 Mg Tablet) 2.5 mg PO BID [facility]; Protocol Last Admin: 03/02/23 09:41 Dose: 2.5 mg Atorvastatin Calcium (Atorvastatin 10 Mg Tab) 10 mg PO HS [facility] Last Admin: 03/01/23 20:05 Dose: 10 mg Enoxaparin Sodium (Enoxaparin 40 Mg/0.4 Ml Syringe) 40 mg SQ DAILY [facility] Last Admin: 03/02/23 12:33 Dose: Not Given Ferrous Sulfate (Ferrous Sulfate 325 Mg Tab) 325 mg PO BID-W/MEALS [facility] Last Admin: 03/02/23 14:41 Dose: 325 mg Hydromorphone HCl (Hydromorphone 0.5 Mg/0.5 Ml Syringe) 0.5 mg IVP Q4HR PRN PRN Reason: Pain Last Admin: 03/01/23 12:49 Dose: 0.5 mg Hydromorphone HCl (Hydromorphone 0.5 Mg/0.5 Ml Syringe) 0.125 mg IVP Q3HR PRN PRN Reason: Pain Scale 1 to 3 Hydromorphone HCl (Hydromorphone 0.5 Mg/0.5 Ml Syringe) 0.5 mg IVP Q3HR PRN PRN Reason: Pain Scale 7 to 10 Last Admin: 03/01/23 23:34 Dose: 0.5 mg Hydromorphone HCl (Hydromorphone 0.5 Mg/0.5 Ml Syringe) 0.25 mg IVP Q3HR PRN PRN Reason: Pain Scale 4 to 6 Sodium Chloride (Saline 0.9%) 1,000 mls @ 70 mls/hr IV .[id number] [facility] Last Admin: 03/02/23 01:59 Dose: 70 mls/hr Ferric Sodium Gluconate 125 mg (/ Sodium Chloride) 110 mls @ 100 mls/hr IVPB DAILY [facility] Stop: 03/03/23 10:05 Last Admin: 03/02/23 15:17 Dose: 100 mls/hr Magnesium Hydroxide (Magnesium Hydroxide 2,400 Mg/30 Ml Cup) 2,400 mg PO DAILY PRN PRN Reason: Constipation Naloxone HCl (Naloxone 0.4 Mg/Ml 1 Ml Vial) 0.2 mg IV Q2M PRN PRN Reason: Opioid Reversal Ondansetron HCl (Ondansetron 4 Mg/2 Ml Vial) 4 mg IVP Q8H PRN PRN Reason: Nausea And Vomiting Pantoprazole Sodium (Pantoprazole 40 Mg Tablet) 40 mg PO AC-BRKFST [facility] Last Admin: 03/02/23 07:05 Dose: 40 mg Senna/Docusate Sodium (Sennosides-Docusate Sodium 1 Each Tab) 2 each PO HS [facility] Last Admin: 03/01/23 20:05 Dose: 2 each Past medical history to include: Hypertension, hyperlipidemia, primary osteoarthritis, GERD, Social history: Homemaker. . No smoking or alcohol Physical examination: VITAL SIGNS: 97.6, 87, 18, 127/74, 98% room air GENERAL: Up in a recliner EYES: Pupils equal. Conjunctiva normal. HEENT: External appearance of nose and ears normal, oral cavity grossly normal. NECK: JVD not raised; masses not palpable. HEART: First and second heart sounds are normal; no edema. LUNGS: Respiratory rate normal; clear to auscultation. ABDOMEN: Soft, nontender, liver spleen not palpable, no masses palpable. PSYCH: Alert and oriented x3; mood and affect normal. MUSCULOSKELETAL:No Clubbing/cyanosis;muscles-grossly intact. Dressing over left hip incision. Evidence of OA in other joints INVESTIGATIONS, reviewed in the clinical context: March 02: White count 9.2 hemoglobin 9.3 platelets 268 potassium 4.4 creatinine 0.91 March 01: Sodium 140 potassium 3.1 creatinine 0.73 February 28: White count 11.6 hemoglobin 14.5 platelets 309 sodium 139 potassium 3.8 BUN 29 creatinine 1.11 EKG tracing personally reviewed by me-normal sinus rhythm. Chest x-ray film personally reviewed by me-elevated right diaphragm Assessment and plan: -Left femoral neck fracture Closed reduction IM nailing by Dr. Jamison Knight On eliquis for DVT prophylaxis. Pain control. IV cefazolin for infection prophylaxis -Acute postprocedure blood loss anemia expected from surgery I Ferrlecit 2 vessels -Hyperlipidemia Zocor -Reactive hypotension from blood loss anemia. Hold Cozaar -Primary osteoarthritis Pain medications as needed -Acute kidney injury. Possibly ATN.: Improved Voltaren and hydrochlorothiazide discontinued Received IV fluids -I Ferrlecit 2 doses. Oral Ferrlecit added. Discussed with patient. Thank you Dr. Knight
[2023-03-02] MEDS: ATORVASTATIN 10 MG TAB PO SCH (21:26)
[2023-03-02] MEDS: SENNOSIDES-DOCUSATE SODIUM 1 EACH TAB PO SCH (21:26)
[2023-03-03] MEDS: HYDROcodone/APAP 7.5-325MG 1 EACH TAB PO PRN ×3 (01:17→13:09)
[2023-03-03] MEDS: PANTOPRAZOLE 40 MG TABLET PO SCH (06:49)
[2023-03-03] MEDS: FERROUS SULFATE 325 MG TAB PO SCH (06:49)
[2023-03-03 07:36] VITALS: RESP 18
--- NOTE | 2023-03-03 10:05 | P.DS ---
Providers Date of admission: 02/28/23 14:35 Expected date of discharge: 03/03/23 Attending physician: Jamison Knight Consults: 02/28/23 14:35 Consult Physician Urgent Consulting Provider: Skyler Rm Consult Reason/Comments: Medical clearance for surgery Do you want consulting provider notified?: Yes Primary care physician: Hector Mcclure - Discharge Diagnosis(es) (1) Femur fracture, left Current Visit: Yes Status: Acute Hospital Course: This is a 67-year-old female who sustained a fracture of her left femur after an injury at home on 02/28/2023. The patient presented for evaluation in the emergency room where x-rays revealed subtrochanteric fracture of the left femur. After discussion and consideration patient elects to proceed with closed reduction and intramedullary rodding of the left femur. The patient is seen preoperatively by Dr. Knight and medically cleared for surgery by internal medicine. Patient is admitted to [facility] on 02/28/2023 and closed reduction and intramedullary rodding of the left femur is performed on 03/01/2023. The procedure is performed without complication or sequelae. The patient is doing well postoperatively. Labs and vital signs are stable on day of discharge. On day of discharge patient's hip incision is healing well. There is minimal erythema. There is no drainage noted at this time. There is minimal soft tissue swelling to the hip and thigh. Patient has full foot and ankle motion without difficulty or pain. Calf is soft and nontender to palpation. Neurovascular status to the left lower extremity is intact. Patient is discharged to rehab in good condition. Please see med rec for accurate list of home medications. Plan - Discharge Summary Discharge Rx Participant: Yes New Discharge Prescriptions: New HYDROcodone/APAP 7.5-325MG [[place] 7.5-325] 1 - 2 tab PO Q6H PRN #32 tab PRN Reason: Pain Sennosides [Senokot] 2 tab PO DAILY PRN #60 tablet PRN Reason: Constipation Apixaban [Eliquis] 2.5 mg PO BID 30 Days #60 tab No Action Omeprazole [PriLOSEC] 20 mg PO DAILY Simvastatin [Zocor] 10 mg PO HS Diclofenac Sodium [Voltaren] 50 mg PO BID Alendronate Sodium [Fosamax] 70 mg PO MANDUJANO Calcium Citrate/Vitamin D3 [Citracal + D Maximum Caplet] 1 tab PO DAILY hydroCHLOROthiazide 12.5 mg PO DAILY Losartan [Cozaar] 25 mg PO DAILY Triamcinolone 0.1% Cream [Kenalog 0.1% Cream] 1 applic TOPICAL BID PRN PRN Reason: Vulva/Vagina itching Acetaminophen/Diphenhydramine [Tylenol PM 500-25mg] 2 tab PO HS Discharge Medication List Acetaminophen/Diphenhydramine [Tylenol PM 500-25mg] 2 tab PO HS 02/28/23 [History] Alendronate Sodium [Fosamax] 70 mg PO MANDUJANO 02/28/23 [History] Calcium Citrate/Vitamin D3 [Citracal + D Maximum Caplet] 1 tab PO DAILY 02/28/23 [History] Diclofenac Sodium [Voltaren] 50 mg PO BID 02/28/23 [History] Losartan [Cozaar] 25 mg PO DAILY 02/28/23 [History] Omeprazole [PriLOSEC] 20 mg PO DAILY 02/28/23 [History] Simvastatin [Zocor] 10 mg PO HS 02/28/23 [History] Triamcinolone 0.1% Cream [Kenalog 0.1% Cream] 1 applic TOPICAL BID PRN 02/28/23 [History] hydroCHLOROthiazide 12.5 mg PO DAILY 02/28/23 [History] Apixaban [Eliquis] 2.5 mg PO BID 30 Days #60 tab 03/01/23 [Rx] HYDROcodone/APAP 7.5-325MG [[place] 7.5-325] 1 - 2 tab PO Q6H PRN #32 tab 03/01/23 [Rx] Sennosides [Senokot] 2 tab PO DAILY PRN #60 tablet 03/01/23 [Rx] Follow up Appointment(s)/Referral(s): Hector Mcclure MD [Primary Care Provider] - 1-2 days Jamison Knight DO [Doctor of Osteopathic Medicine] - 03/15/23 3:00 pm Activity/Diet/Wound Care/Special Instructions: Toe-touch weight-bearing with a walker. Leave dressing intact. Dressing may be removed by home care nurse or by patient in 7 days. Then change dressing twice daily until follow up. May shower with initial dressing intact and after removal if there is no drainage from the incisions. If dressing become saturated, please remove. [place] to be removed in 10-14 days. Please take Eliquis twice daily for 30 days to help prevent blood clots. Recommend use of compression stockings daily until follow up to help prevent swelling and blood clots. May remove at night before sleeping. Please follow-up with [facility] in 2 weeks and call with any questions or concerns, . Discharge Disposition: TRANSFER TO SNF/F
[2023-03-03] MEDS: SODIUM FERRIC GLUCONAT-SUCROSE 125 MG in SODIUM CHLORIDE 0.9% 100 ML IVPB SCH (10:08)
[2023-03-03] MEDS: APIXABAN 2.5 MG TABLET PO SCH (10:24)
[2023-03-03] MEDS: ENOXAPARIN 40 MG/0.4 ML SYRINGE SQ SCH (10:30)
[2023-03-03] MEDS: SODIUM CHLORIDE 0.9% 1,000 ML IV SCH (11:31)
[2023-03-03 13:48] VITALS: BP 111/71; PULSE 91; TEMP 98.1
--- NOTE | 2023-03-03 17:11 | P.PN ---
Progress Note - Text Progress Note Date: 03/03/23 - Chief Complaint Left femur fracture - History of Present Illness This is a pleasant 67-year-old patient follows with Dr. Hector Mcclure. Chronic stable medical conditions include hyperlipidemia, essential hypertension, GERD, Frank arthritis. Patient somewhat limited in her exercise tolerance that is able to do a lot of mouth because of pain in her knees. She was started take a step, but hit the rung, and felt a snap in the left hip area. Patient is a confirmed fracture of the left femoral neck. at the bedside. Denies any prior cardiac history. No chest pain or shortness of breath. March 01: Underwent closed reduction and IM rodding of the left femur. Postprocedure laying in bed. Pain control. Has been at the bedside. No nausea vomiting. March 02: Sitting up in the recliner. Some pain at the operative site. Tolerating diet. Being evaluated for rehab. Discussed with patient and . Significant drop in hemoglobin. Given IV Ferrlecit 2 doses. BP on the lower side. Cozaar held March 03: Doing well. Blood pressure stable off Cozaar. Discussed with the patient. Not to resume until blood pressures above 1:30 systolic. Patient unable to get IV iron as it infiltrated. Oral ferrous sulfate added. Questions answered. Otherwise patient doing well. Current medications reviewed Past medical history to include: Hypertension, hyperlipidemia, primary osteoarthritis, GERD, Social history: Homemaker. . No smoking or alcohol Physical examination: VITAL SIGNS: 98.1, 91, 18, 101-71, 98% room air GENERAL: Up in a recliner, comfortable EYES: Pupils equal. Conjunctiva normal. HEENT: External appearance of nose and ears normal, oral cavity grossly normal. NECK: JVD not raised; masses not palpable. HEART: First and second heart sounds are normal; no edema. LUNGS: Respiratory rate normal; clear to auscultation. ABDOMEN: Soft, nontender, liver spleen not palpable, no masses palpable. PSYCH: Alert and oriented x3; mood and affect normal. MUSCULOSKELETAL:No Clubbing/cyanosis;muscles-grossly intact. Dressing over left hip incision. Evidence of OA in other joints INVESTIGATIONS, reviewed in the clinical context: March 02: White count 9.2 hemoglobin 9.3 platelets 268 potassium 4.4 creatinine 0.91 March 01: Sodium 140 potassium 3.1 creatinine 0.73 February 28: White count 11.6 hemoglobin 14.5 platelets 309 sodium 139 potassium 3.8 BUN 29 creatinine 1.11 EKG tracing personally reviewed by me-normal sinus rhythm. Chest x-ray film personally reviewed by me-elevated right diaphragm Assessment and plan: -Left femoral neck fracture Closed reduction IM nailing by Dr. Jamison Knight On eliquis for DVT prophylaxis. Pain control. IV cefazolin for infection prophylaxis -Acute postprocedure blood loss anemia expected from surgery I Ferrlecit -infiltrated could not tolerate. Ferrous sulfate 325 twice a day -Hyperlipidemia Zocor -Essential hypertension. Because of blood loss patient's blood pressures controlled. Hold Cozaar to systolic blood pressure goes above 1:30 -Primary osteoarthritis Pain medications as needed -Acute kidney injury. Possibly ATN.: Improved Voltaren and hydrochlorothiazide discontinued Received IV fluids Patient is going to rehab today. Questions answered. Thank you Dr. Knight
--- NOTE | 2023-03-05 10:21 | CDI ---
Documentation Clarification Form Date: 03/05/2023 10:02:55 AM From: Yadi Delaney RN CCDS Phone: [phone] Admit Date: 02/28/2023 02:35:00 PM Patient Name: Martita Rebolledo Visit Number: [id number] Discharge Date: 03/03/2023 03:03:00 PM ATTENTION: The Clinical Documentation Specialists (CDI) and [facility] Coding Staff appreciate your assistance in clarifying documentation. Please respond to the clarification below the line at the bottom and electronically sign. The CDI & [facility] Coding staff will review the response and follow-up if needed. Please note: Queries are made part of the Legal Health Record. If you have any questions, please contact the author of this message via ITS. Dr. Skyler FONTENOT is documented 03/01, Medicine note which may lack sufficient clinical evidence/support in the medical record. Additional clarification is requested. History/Risk Factors: 67-year-old female presents to the ED after having left femur pain and having a fall. Medical History: HTN, OA and Breast Cancer. 03/01, H&P. Clinical Indicators: BUN: 02/28 29; 03/01 18; 03/02 20 CR: 02/28 1.11; 03/01 0.73; 03/02 0.91 GFR; 02/28 52; 03/01 86; 03/02 65 Treatment: Maintained on IVFs; Home medications Voltaren and Hydrochlorothiazide not ordered inpatient and were reordered upon discharge. Please clarify if ATN is a valid diagnosis? [ + ] Yes ATN is present as evidence by (additional clinical support): [ ] No, ATN is ruled out [ ] Other (please specify diagnosis) [ ] Unable to determine (Template Last Revised: June 2020) MTDD
== END 2023-03-03 15:03 | DRG 480 ==
LOC: EC 10:51 → 4SSUR 14:35
PROVIDERS: ADMIT Orthopaedic Surgery; ATTEND Orthopaedic Surgery
PROC: 0QS706Z Reposition Left Upper Femur with Intramedullary Internal Fixation Device, Open Approach (ICD-10-PCS; principal; 2023-03-01 11:15)
DX: S72.22XA Displaced subtrochanteric fracture of left femur, initial encounter for closed fracture (principal); N17.0 Acute kidney failure with tubular necrosis; D62 Acute posthemorrhagic anemia; M19.91 Primary osteoarthritis, unspecified site; K59.00 Constipation, unspecified; W19.XXXA Unspecified fall, initial encounter; Z96.652 Presence of left artificial knee joint; I10 Essential (primary) hypertension; E87.6 Hypokalemia; I95.9 Hypotension, unspecified; E78.5 Hyperlipidemia, unspecified; K21.9 Gastro-esophageal reflux disease without esophagitis; Y92.009 Unspecified place in unspecified non-institutional (private) residence as the place of occurrence of the external cause; Z79.83 Long term (current) use of bisphosphonates; Z79.899 Other long term (current) drug therapy; Z85.3 Personal history of malignant neoplasm of breast
CPT/HCPCS: 36415; 51702; 71045; 80048; 80053; 81001; 85025; 85610; 85730; 88304; 88311; 88341; 88342; 93005; 96374; 96376; 99285

== ENCOUNTER 2024-02-25 14:04 | Day surgery (SDC) | payer MEDICARE ==
[2024-02-23 11:36] VITALS: BMI 41.3
[2024-02-25] MEDS: IV FLUID CONTINUATION 1,000 ML IV ONE (14:45)
[2024-02-25 14:50] VITALS: TEMP 97.2
[2024-02-25] MEDS: LACTATED RINGERS 1,000 ML IV SCH (14:54)
[2024-02-25] MEDS ORDERED: PROPOFOL 10 MG/ML 20 ML VIAL IV ONE (15:44)
--- NOTE | 2024-02-25 16:04 | P.PCN ---
Date of Procedure: 02/25/24 Procedure(s) Performed: BRIEF HISTORY: Patient is a 68-year-old pleasant white male scheduled for an elective colonoscopy as a part of screening for colon cancer. PROCEDURE PERFORMED: Colonoscopy. PREOPERATIVE DIAGNOSIS: Screening for colon cancer. IV sedation per Anesthesia. PROCEDURE: After informed consent was obtained, the patient, was brought into the endoscopy unit. IV sedation was administered by Anesthesia under continuous monitoring. Digital rectal examination was normal. Initially the Olympus CF-160 flexible video colonoscope was then inserted in the rectum, gradually advanced into the cecum without any difficulty. Careful examination was performed as the scope was gradually being withdrawn. Ileocecal valve and the appendiceal orifice were visualized and appeared normal. Prep was excellent. Mucosa of the cecum, ascending colon, transverse colon, descending colon, sigmoid colon, and rectum appeared normal. Retroflexion was performed in the rectum and grade 2 internal hemorrhoids and inflamed external skin tags were seen. The patient tolerated the procedure well. IMPRESSION: Normal-appearing colon from rectum to cecum with no evidence of colorectal neoplasia. Internal hemorrhoids and external skin tags RECOMMENDATIONS: Findings of this examination were discussed with the patient as well as her family.. He was advised to have repeat screening colonoscopy in 10 years.
[2024-02-25 16:33] VITALS: BP 118/57; PULSE 83; RESP 16
== END 2024-02-25 16:51 | disposition home or self-care (01) ==
LOC: ORWHC2ENDO 14:04
PROVIDERS: ATTEND Internal Medicine Gastroenterology
DX: Z12.11 Encounter for screening for malignant neoplasm of colon (principal); K64.1 Second degree hemorrhoids; K64.4 Residual hemorrhoidal skin tags; L91.8 Other hypertrophic disorders of the skin; I10 Essential (primary) hypertension; K21.9 Gastro-esophageal reflux disease without esophagitis; Z79.83 Long term (current) use of bisphosphonates; Z79.899 Other long term (current) drug therapy; Z88.0 Allergy status to penicillin
CPT/HCPCS: J2704; G0121

== ENCOUNTER → 2024-08-24 | Outpatient (CLI) | payer MEDICARE ==
[2024-08-24 11:17] LABS: Partial Thromboplastin Time 24.3 sec (22.0-30.0); Prothrombin Time 10.7 sec (10.0-12.5)
[2024-08-24 14:52] LABS: HGB 14.4 g/dL (12.0-15.0); MCH 28.9 pg (27.0-32.0); MCHC 33.5 g/dL (32.0-37.0); MCV 86.2 FL (80.0-97.0); NRBC Per 100 WBC 0 X 10*3/uL (0.00-0.01); Platelet Count 370 X 10*3/uL (140-440); RBC 4.99 X 10*6/uL (4.10-5.20); RDW 14.2 % (11.5-14.5); WBC 7.01 X 10*3/uL (4.50-10.00)
[2024-08-24 15:17] LABS: ALT 19 U/L (8-44); AST 24 U/L (13-35); Albumin 4.2 g/dL (3.8-4.9); Albumin/Globulin Ratio 1.56 Ratio (1.60-3.17); Alkaline Phosphatase 63 U/L (41-126); BUN/Creat Ratio 12.73 Ratio (12.00-20.00); Calcium 9.4 mg/dL (8.7-10.3); Chloride 107 mmol/L (96-109); Globulin 2.7 g/dL (1.6-3.3); Glucose 126 mg/dL (70-110); Sodium 140 mmol/L (135-145); Total Bilirubin 0.5 mg/dL (0.3-1.2); Total Protein 6.9 g/dL (6.2-8.2)
== END | disposition home or self-care (01) ==
LOC: LABWHC1 10:18
PROVIDERS: ATTEND Internal Medicine Geriatric Medicine
DX: Z01.818 Encounter for other preprocedural examination (principal); Z22.322 Carrier or suspected carrier of Methicillin resistant Staphylococcus aureus; M17.11 Unilateral primary osteoarthritis, right knee
CPT/HCPCS: 36415; 80053; 85027; 85610; 85730; 87070; 93005

== ENCOUNTER → 2024-10-12 | Outpatient (CLI) | payer MEDICARE ==
--- NOTE | 2024-10-12 13:44 | US ---
EXAMINATION TYPE: US venous doppler duplex LE RT DATE OF EXAM: 10/12/2024 1:17 PM COMPARISON: NONE CLINICAL INDICATION: Female, 69 years old with history of RIGHT M79.661 PAIN IN RIGHT LOWER LEG; Pain in right calf after physical therapy. Right knee replacement 4 weeks ago, Pain TECHNIQUE: The lower extremity deep venous system is examined utilizing real time linear array sonog edgard with graded compression, color doppler sonography, and spectral doppler. SIDE PERFORMED: Right FINDINGS: VESSELS IMAGED: Common Femoral Vein Deep Femoral Vein Greater Saphenous Vein * Femoral Vein Popliteal Vein Small Saphenous Vein * Proximal Calf Veins (* superficial vessels) Right Leg: No evidence for DVT, Color Doppler imaging shows patency of the vessels. Spectral wavefor ms are within normal limits. IMPRESSION: No evidence for DVT within the right lower extremity imaged from the groin to the upper calf. [facility], , 10/12/2024 1:42 PM
== END | disposition home or self-care (01) ==
LOC: RADUSWWP 12:57
PROVIDERS: ATTEND Orthopaedic Surgery
DX: M79.661 Pain in right lower leg (principal); M25.561 Pain in right knee; Z47.1 Aftercare following joint replacement surgery